=== PATIENT | female | born 1950 | race African-American/Black ===

== ENCOUNTER 2020-02-18 09:11 | Emergency (ER) | payer MEDICARE, MEDICAID ==
[~2020-02-18] VITALS: Ht 160 cm; Wt 93.0 kg
[2020-02-18 09:25] VITALS: BP 163/101
[2020-02-18] MEDS ORDERED: ACETAMINOPHEN 325MG TABLET PO ONE (10:45)
[2020-02-18] MEDS ORDERED: BACITRACIN ZINC OINT UDPKT TOP ONE (11:00)
== END 2020-02-18 11:53 | disposition home or self-care (01) ==
LOC: ER 09:39
DX: S91.114A Laceration without foreign body of right lesser toe(s) without damage to nail, initial encounter (principal); E78.00 Pure hypercholesterolemia, unspecified; I10 Essential (primary) hypertension; Z90.710 Acquired absence of both cervix and uterus; W22.8XXA Striking against or struck by other objects, initial encounter; Y93.89 Activity, other specified; Y92.018 Other place in single-family (private) house as the place of occurrence of the external cause
CPT/HCPCS: 99282; 99283

== ENCOUNTER 2020-06-20 21:20 | Inpatient (IN) | payer MEDICARE, MEDICAID ==
[~2020-06-20] VITALS: Ht 160 cm; Wt 71.8 kg
[2020-06-20] MEDS ORDERED: LABETALOL 5MG/ML SYR 20 MG/4 ML SYRINGE IV ONE (21:30)
[2020-06-20 22:12] LABS: BASOPHILS % 0.8 % (0.0-2.0); EOSINOPHILS % 1.5 % (0.0-5.0); HEMATOCRIT. 39.4 % (36.0-48.0); LYMPHOCYTES % 33.9 % (20.0-50.0); MEAN CORPUSCULAR HEMOGLOBIN 26.4 pg (28.0-32.0); MEAN CORPUSCULAR VOLUME 80.2 fL (81.0-99.0); MEAN PLATELET VOLUME 7.4 fl (7.4-10.4); MONOCYTES % 7.2 % (2.0-8.0); NEUTROPHILS % 56.6 % (40.0-76.0); PLATELET 218 x1000/uL (130-400); RED BLOOD CELL COUNT 4.91 mill/uL (4.2-5.4); RED CELL DISTRIBUTION WIDTH 14.9 % (11.6-14.6)
[2020-06-20 22:18] LABS: CHLORIDE 106 mEq/L (98-107)
[2020-06-20 22:22] LABS: INR 0.9; PARTIAL THROMBOPLASTIN TIME 27.2 sec (23.4-31.0); PROTHROMBIN TIME 9.9 sec (9.6-11.0)
[2020-06-20 22:25] LABS: LDL CHOLESTEROL 70 mg/dL (5-100)
[2020-06-20] MEDS ORDERED: ASPIRIN 325MG EC TABLET PO ONE (23:00)
[2020-06-20] MEDS ORDERED: CLOPIDOGREL 75MG TABLET PO ONE (23:00)
[2020-06-20] MEDS ORDERED: IOHEXOL-350 100 ML BOTTLE ONE (23:04)
[2020-06-21] MEDS ORDERED: TRAZODONE HCL 50MG TABLET PO PRN (11:45)
[2020-06-21] MEDS ORDERED: DEXTROSE 50% WATER 50ML SYRINGE IV PRN (11:45)
[2020-06-21] MEDS ORDERED: ONDANSETRON HCL 4MG/2ML INJ IV PRN (11:45)
[2020-06-21] MEDS: BLOOD SUGAR DIAGNOSTIC STRIP TEST SCH ×3 (13:18→20:38)
[2020-06-21] MEDS: INSULIN LISPRO 100 UNITS/ML SUBCUT SCH ×3 (13:24→21:00)
[2020-06-21] MEDS: HEPARIN 5000 UNITS/ML VIAL SUBCUT SCH (21:00)
[2020-06-21] MEDS: ATORVASTATIN CALCIUM 40MG TABLET PO SCH (21:00)
[2020-06-22] VITALS (10 sets, daily range): BP systolic 103–148; BP diastolic 26–97
[2020-06-22] MEDS: BLOOD SUGAR DIAGNOSTIC STRIP TEST SCH ×4 (06:50→21:13)
[2020-06-22] MEDS: CLOPIDOGREL 75MG TABLET PO SCH (08:09)
[2020-06-22] MEDS: ASPIRIN 81MG EC TABLET PO SCH (08:09)
[2020-06-22] MEDS: HEPARIN 5000 UNITS/ML VIAL SUBCUT SCH ×2 (08:10→21:13)
[2020-06-22] MEDS: INSULIN LISPRO 100 UNITS/ML SUBCUT SCH ×4 (08:11→21:43)
[2020-06-22 10:04] LABS: BASOPHILS % 0.6 % (0.0-2.0); EOSINOPHILS % 0.6 % (0.0-5.0); HEMATOCRIT. 39.6 % (36.0-48.0); HEMOGLOBIN. 12.8 g/dL (12.0-16.0); MEAN CORPUSCULAR VOLUME 80.3 fL (81.0-99.0); MEAN PLATELET VOLUME 7.4 fl (7.4-10.4); MONOCYTES % 8.1 % (2.0-8.0); NEUTROPHILS % 54.7 % (40.0-76.0); PLATELET 212 x1000/uL (130-400); RED BLOOD CELL COUNT 4.93 mill/uL (4.2-5.4); RED CELL DISTRIBUTION WIDTH 14.7 % (11.6-14.6)
[2020-06-22 10:14] LABS: CHLORIDE 104 mEq/L (98-107)
[2020-06-22] MEDS ORDERED: DULOXETINE HCL 30MG DR CAPSULE PO SCH ×2 (14:45→21:00)
[2020-06-22] MEDS ORDERED: GABA-531 PO (14:45)
[2020-06-22] MEDS ORDERED: GABAPENTIN 300MG CAPSULE PO SCH (14:45)
[2020-06-22] MEDS ORDERED: LEVO75TA7 MT (14:45)
[2020-06-22] MEDS ORDERED: DULO30CA52 PO (14:45)
[2020-06-22] MEDS: GABAPENTIN 300MG CAPSULE PO SCH ×2 (15:33→21:12)
[2020-06-22] MEDS: LEVOTHYROXINE SODIUM 75MCG TABLET PO SCH (15:33)
[2020-06-22] MEDS: ACETAMINOPHEN 500MG TABLET PO PRN (15:34)
[2020-06-22] MEDS: DULOXETINE HCL 30MG DR CAPSULE PO SCH ×2 (17:21→21:12)
[2020-06-22] MEDS ORDERED: INSLIS SUBCUT (17:32)
[2020-06-22] MEDS ORDERED: INSU100I28 SQ (17:34)
[2020-06-22] MEDS: ATORVASTATIN CALCIUM 40MG TABLET PO SCH (21:12)
[2020-06-22] MEDS: ACETAMINOPHEN 325MG TABLET PO PRN (21:51)
[2020-06-22] MEDS ORDERED: INSULIN GLARGINE UD 100 UNITS/ML SYR SUBCUT SCH (22:00)
[2020-06-23] VITALS (10 sets, daily range): BP systolic 111–150; BP diastolic 73–99
[2020-06-23] MEDS: LEVOTHYROXINE SODIUM 75MCG TABLET PO SCH (05:50)
[2020-06-23] MEDS: GABAPENTIN 300MG CAPSULE PO SCH ×3 (05:50→21:30)
[2020-06-23] MEDS: BLOOD SUGAR DIAGNOSTIC STRIP TEST SCH ×4 (05:50→21:32)
[2020-06-23] MEDS: ACETAMINOPHEN 325MG TABLET PO PRN (06:12)
[2020-06-23 06:19] LABS: BASOPHILS % 0.6 % (0.0-2.0); EOSINOPHILS % 0.6 % (0.0-5.0); HEMATOCRIT. 39.2 % (36.0-48.0); HEMOGLOBIN. 12.8 g/dL (12.0-16.0); LYMPHOCYTES % 31.7 % (20.0-50.0); MEAN CORPUSCULAR VOLUME 79.5 fL (81.0-99.0); MEAN PLATELET VOLUME 7.5 fl (7.4-10.4); MONOCYTES % 7.6 % (2.0-8.0); NEUTROPHILS % 59.5 % (40.0-76.0); PLATELET 209 x1000/uL (130-400); RED BLOOD CELL COUNT 4.93 mill/uL (4.2-5.4); RED CELL DISTRIBUTION WIDTH 14.7 % (11.6-14.6)
[2020-06-23 06:35] LABS: CHLORIDE 107 mEq/L (98-107)
[2020-06-23] MEDS: HEPARIN 5000 UNITS/ML VIAL SUBCUT SCH ×2 (08:21→21:32)
[2020-06-23] MEDS: DULOXETINE HCL 30MG DR CAPSULE PO SCH ×2 (08:21→21:30)
[2020-06-23] MEDS: ASPIRIN 81MG EC TABLET PO SCH (08:21)
[2020-06-23] MEDS: CLOPIDOGREL 75MG TABLET PO SCH (08:21)
[2020-06-23] MEDS: INSULIN LISPRO 100 UNITS/ML SUBCUT SCH ×3 (08:22→21:29)
[2020-06-23] MEDS: ATORVASTATIN CALCIUM 40MG TABLET PO SCH (21:30)
[2020-06-23] MEDS: ACETAMINOPHEN 500MG TABLET PO PRN (21:30)
[2020-06-23] MEDS: INSULIN GLARGINE UD 100 UNITS/ML SYR SUBCUT SCH (21:31)
[2020-06-24] VITALS: BP 129/67
[2020-06-24 04:00] VITALS: BP 115/72
[2020-06-24] MEDS: GABAPENTIN 300MG CAPSULE PO SCH ×3 (06:05→22:55)
[2020-06-24 06:26] LABS: BASOPHILS % 0.9 % (0.0-2.0); EOSINOPHILS % 0.2 % (0.0-5.0); HEMATOCRIT. 41.1 % (36.0-48.0); HEMOGLOBIN. 13.2 g/dL (12.0-16.0); LYMPHOCYTES % 26.6 % (20.0-50.0); MEAN CORPUSCULAR HEMOGLOBIN 25.8 pg (28.0-32.0); MEAN CORPUSCULAR VOLUME 80.4 fL (81.0-99.0); MONOCYTES % 9.4 % (2.0-8.0); NEUTROPHILS % 62.9 % (40.0-76.0); PLATELET 232 x1000/uL (130-400); RED BLOOD CELL COUNT 5.11 mill/uL (4.2-5.4); RED CELL DISTRIBUTION WIDTH 14.8 % (11.6-14.6)
[2020-06-24] MEDS: BLOOD SUGAR DIAGNOSTIC STRIP TEST SCH ×4 (06:30→20:05)
[2020-06-24] MEDS: INSULIN LISPRO 100 UNITS/ML SUBCUT SCH ×3 (06:31→23:01)
[2020-06-24] MEDS: LEVOTHYROXINE SODIUM 75MCG TABLET PO SCH (06:32)
[2020-06-24 06:33] LABS: CHLORIDE 104 mEq/L (98-107)
[2020-06-24] MEDS: HEPARIN 5000 UNITS/ML VIAL SUBCUT SCH ×2 (09:23→22:56)
[2020-06-24] MEDS: DULOXETINE HCL 30MG DR CAPSULE PO SCH ×2 (09:23→22:56)
[2020-06-24] MEDS: CLOPIDOGREL 75MG TABLET PO SCH (09:23)
[2020-06-24] MEDS: ASPIRIN 81MG EC TABLET PO SCH (09:23)
[2020-06-24] MEDS: ACETAMINOPHEN 500MG TABLET PO PRN ×2 (09:44→22:55)
[2020-06-24] MEDS ORDERED: CEFTRIAXONE 1 G PREMIX 50 ML IV SCH (13:45)
[2020-06-24] MEDS: CEFTRIAXONE 1,000 MG in DEXTROSE 5% WATER 50 ML IV SCH (15:47)
[2020-06-24 17:41] LABS: T4 FREE 1.03 ng/dL (0.76-1.46)
[2020-06-24] MEDS: AZITHROMYCIN 500 MG in DEXT 5% WATER 250 ML IV SCH (19:28)
[2020-06-24 20:00] VITALS: BP 123/54
[2020-06-24] MEDS: ATORVASTATIN CALCIUM 40MG TABLET PO SCH (22:55)
[2020-06-24] MEDS: INSULIN GLARGINE UD 100 UNITS/ML SYR SUBCUT SCH (23:01)
[2020-06-25] VITALS: BP 112/60
[2020-06-25 04:00] VITALS: BP 121/59
[2020-06-25] MEDS: BLOOD SUGAR DIAGNOSTIC STRIP TEST SCH ×4 (05:19→21:00)
[2020-06-25] MEDS: LEVOTHYROXINE SODIUM 75MCG TABLET PO SCH (06:02)
[2020-06-25] MEDS: GABAPENTIN 300MG CAPSULE PO SCH ×3 (06:03→22:46)
[2020-06-25] MEDS: INSULIN LISPRO 100 UNITS/ML SUBCUT SCH ×3 (06:11→22:48)
[2020-06-25] MEDS: ASPIRIN 81MG EC TABLET PO SCH (08:56)
[2020-06-25] MEDS: ACETAMINOPHEN 500MG TABLET PO PRN ×2 (08:57→22:52)
[2020-06-25] MEDS: DULOXETINE HCL 30MG DR CAPSULE PO SCH ×2 (08:57→22:45)
[2020-06-25] MEDS: CLOPIDOGREL 75MG TABLET PO SCH (08:57)
[2020-06-25] MEDS: HEPARIN 5000 UNITS/ML VIAL SUBCUT SCH ×2 (08:58→22:48)
[2020-06-25 12:34] LABS: BASOPHILS % 0.6 % (0.0-2.0); EOSINOPHILS % 0.5 % (0.0-5.0); HEMATOCRIT. 37.5 % (36.0-48.0); HEMOGLOBIN. 12.2 g/dL (12.0-16.0); LYMPHOCYTES % 23.9 % (20.0-50.0); MEAN CORPUSCULAR HEMOGLOBIN 25.8 pg (28.0-32.0); MEAN CORPUSCULAR VOLUME 79.2 fL (81.0-99.0); MEAN PLATELET VOLUME 7.8 fl (7.4-10.4); MONOCYTES % 6.7 % (2.0-8.0); NEUTROPHILS % 68.3 % (40.0-76.0); PLATELET 236 x1000/uL (130-400); RED BLOOD CELL COUNT 4.74 mill/uL (4.2-5.4); RED CELL DISTRIBUTION WIDTH 14.7 % (11.6-14.6)
[2020-06-25 12:42] LABS: CHLORIDE 104 mEq/L (98-107)
[2020-06-25] MEDS: CEFTRIAXONE 1,000 MG in DEXTROSE 5% WATER 50 ML IV SCH (15:17)
[2020-06-25] MEDS: AZITHROMYCIN 500 MG in DEXT 5% WATER 250 ML IV SCH (15:18)
[2020-06-25 20:00] VITALS: BP 116/69
[2020-06-25] MEDS ORDERED: INSULIN GLARGINE UD 100 UNITS/ML SYR SUBCUT SCH (22:00)
[2020-06-25] MEDS: ATORVASTATIN CALCIUM 40MG TABLET PO SCH (22:46)
[2020-06-26 00:29] VITALS: BP 118/46
[2020-06-26 04:00] VITALS: BP 114/52
[2020-06-26] MEDS: LEVOTHYROXINE SODIUM 75MCG TABLET PO SCH (06:17)
[2020-06-26] MEDS: GABAPENTIN 300MG CAPSULE PO SCH ×3 (06:17→21:10)
[2020-06-26] MEDS: INSULIN LISPRO 100 UNITS/ML SUBCUT SCH ×4 (06:18→21:00)
[2020-06-26] MEDS: BLOOD SUGAR DIAGNOSTIC STRIP TEST SCH ×4 (06:24→21:07)
[2020-06-26 08:00] VITALS: BP 114/66
[2020-06-26 08:23] LABS: BASOPHILS % 0.6 % (0.0-2.0); HEMATOCRIT. 36.3 % (36.0-48.0); LYMPHOCYTES % 33.5 % (20.0-50.0); MEAN PLATELET VOLUME 7.7 fl (7.4-10.4); MONOCYTES % 10.6 % (2.0-8.0); NEUTROPHILS % 54.3 % (40.0-76.0); PLATELET 265 x1000/uL (130-400); RED CELL DISTRIBUTION WIDTH 14.3 % (11.6-14.6)
[2020-06-26 08:42] LABS: CHLORIDE 106 mEq/L (98-107)
[2020-06-26] MEDS: CLOPIDOGREL 75MG TABLET PO SCH (10:17)
[2020-06-26] MEDS: ASPIRIN 81MG EC TABLET PO SCH (10:17)
[2020-06-26] MEDS: DULOXETINE HCL 30MG DR CAPSULE PO SCH ×2 (10:17→21:10)
[2020-06-26] MEDS: HEPARIN 5000 UNITS/ML VIAL SUBCUT SCH ×2 (10:20→21:14)
[2020-06-26] MEDS: ACETAMINOPHEN 500MG TABLET PO PRN (10:26)
[2020-06-26 12:00] VITALS: BP 106/53
[2020-06-26] MEDS: AZITHROMYCIN 500 MG in DEXT 5% WATER 250 ML IV SCH (15:45)
[2020-06-26] MEDS: CEFTRIAXONE 1,000 MG in DEXTROSE 5% WATER 50 ML IV SCH (15:45)
[2020-06-26 16:00] VITALS: BP 118/61
[2020-06-26 20:00] VITALS: BP 117/58
[2020-06-26] MEDS: ATORVASTATIN CALCIUM 40MG TABLET PO SCH (21:14)
[2020-06-26] MEDS ORDERED: INSULIN GLARGINE UD 100 UNITS/ML SYR SUBCUT SCH (22:00)
[2020-06-27 04:00] VITALS: BP 111/62
[2020-06-27] MEDS: GABAPENTIN 300MG CAPSULE PO SCH ×2 (06:18→13:05)
[2020-06-27] MEDS: LEVOTHYROXINE SODIUM 75MCG TABLET PO SCH (06:18)
[2020-06-27] MEDS: BLOOD SUGAR DIAGNOSTIC STRIP TEST SCH ×2 (06:24→12:14)
[2020-06-27 08:00] VITALS: BP 124/74
[2020-06-27] MEDS: DULOXETINE HCL 30MG DR CAPSULE PO SCH (08:34)
[2020-06-27] MEDS: CLOPIDOGREL 75MG TABLET PO SCH (08:34)
[2020-06-27] MEDS: ASPIRIN 81MG EC TABLET PO SCH (08:34)
[2020-06-27] MEDS: HEPARIN 5000 UNITS/ML VIAL SUBCUT SCH (08:34)
[2020-06-27] MEDS: INSULIN LISPRO 100 UNITS/ML SUBCUT SCH ×2 (08:35→12:30)
[2020-06-27] MEDS ORDERED: LIP40 PO (11:33)
[2020-06-27] MEDS ORDERED: CLOP75TA15 PO (11:33)
[2020-06-27] MEDS ORDERED: ASPI-1158 PO (11:33)
[2020-06-27] MEDS ORDERED: AZIT500T8 MT (11:35)
[2020-06-27 12:00] VITALS: BP 104/68
[2020-06-27] MEDS: CEFTRIAXONE 1,000 MG in DEXTROSE 5% WATER 50 ML IV SCH (14:12)
[2020-06-27] MEDS: AZITHROMYCIN 500 MG in DEXT 5% WATER 250 ML IV SCH (14:13)
[2020-06-27 16:00] VITALS: BP 104/62
[2020-06-27 16:09] VITALS: BP 102/62
[2020-06-27] MEDS ORDERED: INSULIN GLARGINE UD 100 UNITS/ML SYR SUBCUT SCH (22:00)
[2020-06-28] MEDS ORDERED: AZITHROMYCIN 500 MG TABLET PO SCH (09:00)
== END 2020-06-27 17:51 | disposition home health service (06) | DRG 871 ==
LOC: ER 21:20 → MICUSO 23:59 → 3WST 06-22 01:58 → 8WST 06-23 17:28
PROVIDERS: ADMIT Internal Medicine; ATTEND Internal Medicine
DX: A41.89 Other specified sepsis (principal); J12.89 Other viral pneumonia; U07.1 COVID-19; I63.9 Cerebral infarction, unspecified; I69.354 Hemiplegia and hemiparesis following cerebral infarction affecting left non-dominant side; E87.1 Hypo-osmolality and hyponatremia; E11.65 Type 2 diabetes mellitus with hyperglycemia; E78.5 Hyperlipidemia, unspecified; I10 Essential (primary) hypertension; E03.9 Hypothyroidism, unspecified; E11.40 Type 2 diabetes mellitus with diabetic neuropathy, unspecified; F80.81 Childhood onset fluency disorder; M19.90 Unspecified osteoarthritis, unspecified site; M47.9 Spondylosis, unspecified; E66.01 Morbid (severe) obesity due to excess calories; E78.00 Pure hypercholesterolemia, unspecified; M79.7 Fibromyalgia; Z79.4 Long term (current) use of insulin; I69.398 Other sequelae of cerebral infarction; Z90.710 Acquired absence of both cervix and uterus; Z79.82 Long term (current) use of aspirin; Z68.35 Body mass index [BMI] 35.0-35.9, adult; Z79.899 Other long term (current) drug therapy; Z96.89 Presence of other specified functional implants
CPT/HCPCS: 36415; 70496; 70498; 71045; 80053; 82962; 83036; 83721; 83735; 84145; 84439; 84443; 84484; 85025; 87426; 93005; 93306; 93880; 93970; 95816; 96374; 97162; 97165; 99291; C1893; J0456; J0696; J1644; J1815; J3490; J7040; J7060; Q9967; U0003

== ENCOUNTER 2021-12-01 07:11 | Emergency (ER) | payer MEDICARE, MEDICAID ==
[~2021-12-01] VITALS: Ht 170.2 cm; Wt 73.0 kg
[~2021-12-01 07:11] MED LIST: ASPI-1406 PO; AZIT500T8 MT; CLOP75TA15 PO; DULO30CA52 PO; GABA-532 PO; INSLIS SUBCUT; INSU100I28 SQ; LEVO75TA7 MT; LIP40 PO
[2021-12-01 08:04] LABS: BASOPHILS % 0.5 % (0.0-2.0); EOSINOPHILS % 2.7 % (0.0-5.0); HEMATOCRIT. 41.1 % (36.0-48.0); HEMOGLOBIN. 13.4 g/dL (12.0-16.0); LYMPHOCYTES % 26.1 % (20.0-50.0); MEAN CORPUSCULAR HEMOGLOBIN 25.9 pg (28.0-32.0); MEAN CORPUSCULAR VOLUME 79.3 fL (81.0-99.0); MEAN PLATELET VOLUME 7.9 fl (7.4-10.4); MONOCYTES % 7.2 % (2.0-8.0); NEUTROPHILS % 63.5 % (40.0-76.0); PLATELET 252 x1000/uL (130-400); RED BLOOD CELL COUNT 5.19 mill/uL (4.2-5.4); RED CELL DISTRIBUTION WIDTH 14.3 % (11.6-14.6)
[2021-12-01 08:10] LABS: CHLORIDE 106 mEq/L (98-107)
[2021-12-01] MEDS ORDERED: IBUPROFEN 600MG TABLET PO ONE (10:15)
[2021-12-01] MEDS ORDERED: BENZ-16 MT (13:54)
[2021-12-01 15:20] VITALS: BP 162/75
== END 2021-12-01 15:30 | disposition home or self-care (01) ==
LOC: ER 07:11 → CANBEDREQ 23:51
DX: B34.9 Viral infection, unspecified (principal); E11.9 Type 2 diabetes mellitus without complications; E78.00 Pure hypercholesterolemia, unspecified; I10 Essential (primary) hypertension; Z20.822 Contact with and (suspected) exposure to COVID-19; Z88.9 Allergy status to unspecified drugs, medicaments and biological substances; Z86.73 Personal history of transient ischemic attack (TIA), and cerebral infarction without residual deficits
CPT/HCPCS: 36415; 71045; 80053; 82962; 83880; 84484; 85025; 87426; 87804; 93005; 99291; C9803